=== PATIENT | male | born 1960 | race Caucasian/White ===

== ENCOUNTER 2018-06-07 11:21 | Emergency (ER) | payer OTHER ==
--- NOTE | 2018-06-07 11:38 | ED ---
Throat Pain/Nasal Congestion - HPI Summary HPI Summary: Pt is a 58 year old M presenting to the ED with a chief complaint of eye problems. He was driving about an hour ago and he saw a red squiggly line in his R eye that lasted 2-3 minutes, it went away for 10 minutes, came back, and it is still here but more diffuse. He can still see, but it is fuzzy, and he does not want to drive back to [place] in case it gets worse. The pt has a pacemaker. The pt denies any other health issues, including glaucoma or recent eye trauma. - History of Current Complaint Chief Complaint: EDEyeProblem Time Seen by Provider: 06/07/18 11:30 Hx Obtained From: Patient Onset/Duration: Lasting Hours Severity: Moderate - Allergies/Home Medications Allergies/Adverse Reactions: Allergies Allergy/AdvReac Type Severity Reaction Status Date / Time No Known Allergies Allergy Verified 06/07/18 11:28 Home Medications: Home Medications Atenolol 50 mg PO BID 06/07/18 [History Confirmed 06/07/18] Digoxin TAB* [Lanoxin TAB*] 0.25 mg PO DAILY 06/07/18 [History Confirmed ] Enalapril TAB* [Vasotec TAB*] 5 mg PO DAILY 06/07/18 [History Confirmed 06/07/18 ] Rivaroxaban TAB(*) [Xarelto 20 mg] 20 mg PO DAILY 06/07/18 [History Confirmed ] Simvastatin [Zocor] 40 mg PO DAILY 06/07/18 [History Confirmed 06/07/18] PMH/Surg Hx/FS Hx/Imm Hx Previously Healthy: Yes Endocrine/Hematology History: Denies: Hx Diabetes Cardiovascular History: Reports: Hx Pacemaker/ICD Infectious Disease History: No Infectious Disease History: Denies: Traveled Outside the [place] in Last 30 Days - Family History Known Family History: Negative: Hypertension, Diabetes - Social History 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 Normal pupillary responses both direct and consensually. Grossly appears normal. Upon funduscopic exam, could not see muchENT: mucous membranes moist Neck: deferred Respiratory: No signs of respiratory distress Cardiovascular: Appears well perfused, pulses are nml Abdomen: deferred Musculoskeletal: Moving all 4 extremities without obvious discomfort Neurological: Awake and alert, mentation is normal, speech is fluent and appropriate Psychiatric: affect is normal, does not appear anxious or depressed Triage Information Reviewed: Yes Vital Signs On Initial Exam: Initial Vitals Temp Pulse Resp BP Pulse Ox 97.4 F 66 16 112/74 99 18 11:25 18 11:25 06/07/18 11:25 06/07/18 11:25 06/07/18 11:25 Vital Signs Reviewed: Yes Diagnostics - Vital Signs Vital Signs Temp Pulse Resp BP Pulse Ox 06/07/18 11:25 97.4 F 66 16 112/74 99 - Laboratory Lab Statement: Any lab studies that have been ordered have been reviewed, and results considered in the medical decision making process. EENT Course/Dx - Course Course Of Treatment: The pt is a 58 year old M presenting to the ED with a chief complaint of seeing a red squiggly line in his R eye that is blurring his vision. He does not want to drive back to [place] without getting it checked. With the abrupt onset of quite marked visual acuity loss of the right eye, I'm concerned that he may have some type of vascular problem like a central retinal artery occlusion or branch retinal artery occlusion. He is to be urgently evaluated by an academic interventionist which we do not have facility operations manager here. I have arranged to have him evaluated at [facility] as a transfer by private car. His is here and can drive him there. - Diagnoses Provider Diagnoses: Acute loss of vision Discharge - Sign-Out/Discharge Documenting (check all that apply): Patient Departure - transfer - Discharge Plan Condition: Stable Disposition: TRANS [facility] LVL OF CARE FAC Referrals: No Primary Care Phys,NOPCP [Primary Care Provider] - Additional Instructions: Have your take you directly to the ER at [facility]. They will be expecting you and an opthalmologist will be available if emergent evaluation/treatment is required, Unfortunately we do not have an opthalmologist facility operations manager at [facility], so you will be better served at [facility]. - Billing Disposition and Condition Condition: STABLE Disposition: Trans Higher Lvl of Care Fac - Attestation Statements Document Initiated by Migdalia: Yes Documenting Scribe: Valorie Hartley Provider For Whom Migdalia is Documenting (Include Credential): Zaid Cameron MD. Scribe Attestation: Valorie Martinez, scribed for Zaid Cameron MD. on 06/07/18 at 1222. Scribe Documentation Reviewed: Yes Provider Attestation: The documentation as recorded by the migdalia, Valorie Hartley accurately reflects the service I personally performed and the decisions made by me, Zaid Cameron MD. Consult Consult: 1200 - Spoke with ED physician at [facility], Dr. Brenner will be accepting the patient.
[2018-06-07] MEDS ORDERED: acetaZOLAMIDE TAB* 250 MG PO ONE (12:07)
[2018-06-07] MEDS ORDERED: acetaZOLAMIDE TAB* 250 MG ONE (12:25)
[2018-06-07 12:30] VITALS: BP 122/75
== END 2018-06-07 13:03 | disposition short-term general hospital (02) ==
LOC: ED 11:21
DX: H54.61 Unqualified visual loss, right eye, normal vision left eye (principal); Z95.810 Presence of automatic (implantable) cardiac defibrillator; Z79.01 Long term (current) use of anticoagulants
CPT/HCPCS: 99282; A9270-GY